=== PATIENT | male | born 1960 ===

== ENCOUNTER 2018-05-01 09:02 | Day surgery (SDC) | payer OTHER, BC ==
[2018-05-01] MEDS ORDERED: Phenylephrine 10 mg/ml Inj ONE (10:13)
[2018-05-01] MEDS ORDERED: Iodixanol 320 MG/ML 100 ML BOTTLE IV ONE (10:13)
[2018-05-01] MEDS ORDERED: Lidocaine 2% Inj (20ml) ONE (10:13)
[2018-05-01] MEDS ORDERED: Iohexol 350mgl/ml 50 ML ONE (10:13)
[2018-05-01] MEDS ORDERED: Nitroglycerin 50mg in D5W 50 MG/250 ML BOTTLE IV ONE (10:13)
[2018-05-01] MEDS ORDERED: Iodixanol 320 MG/ML 200 ML BOTTLE IV ONE (10:13)
[2018-05-01] MEDS ORDERED: Midazolam 2 MG/2 ML VIAL ONE ×2 (10:35→10:39)
[2018-05-01] MEDS ORDERED: Eptifibatide 20 mg/10mL Inj IVP ONE (10:59)
[2018-05-01] MEDS ORDERED: Eptifibatide 0.75 mg/ml 75 MG/100 ML BOTTLE IV ONE (10:59)
[2018-05-01] MEDS ORDERED: Sodium Chloride 0.9% 1,000 ML IV SCH (11:30)
--- NOTE | 2018-05-01 12:46 | CP.PCM.CON ---
<Mc Luciano - Last Filed: 05/01/18 12:50> History of Present Illness - History of Present Illness History of Present Illness: ICU Consult Note for Dr. Delarosa Reason for Consultation: S/p cardiac catherization Patient is a 57 yo M with PMH of CAD s/p stents, HTN, DM, and HLD was seen at [facility] for unstable angina and elevated troponin levels and admitted for NSTEMI. Patient was transferred to [facility] this AM for cardiac catherization. Drug-eluting stents were placed the LAD and circumflex artery. Patient is transferred to the ICU for monitoring post-cardiac catherization. Currently, patients states he has some mid-back pain, but denies CP, SOB, n/v/d, abdominal pain, fever, chills, MUJICA, or dizziness. PMH: CAD s/p stents, HTN, DM, and HLD Surg: Cardiac catherization All: NKDA SH: Admits to 1-2 [facility] for 25 years FHx: DM, HTN, CKD, unknown CA Review of Systems - Review of Systems All systems: reviewed and no additional remarkable complaints except (12 point ROS reviewed and is negative other than what is stated in HPI.) Past Patient History - Infectious Disease Hx of Infectious Diseases: None - Past Social History Smoking Status: Heavy Smoker > 10 Cigarettes Daily - CARDIAC Hx Hypercholesterolemia: Yes Hx Hypertension: Yes - PULMONARY Hx Respiratory Disorders: No - NEUROLOGICAL Hx Neurological Disorder: No - HEENT Hx HEENT Problems: No - RENAL Hx Chronic Kidney Disease: No - ENDOCRINE/METABOLIC Hx Endocrine Disorders: No - HEMATOLOGICAL/ONCOLOGICAL Hx Blood Disorders: No - INTEGUMENTARY Hx Dermatological Problems: No - MUSCULOSKELETAL/RHEUMATOLOGICAL Hx Musculoskeletal Disorders: No Hx Falls: No - GASTROINTESTINAL Hx Gastrointestinal Disorders: No - GENITOURINARY/GYNECOLOGICAL Hx Genitourinary Disorders: No - PSYCHIATRIC Hx Substance Use: No - SURGICAL HISTORY Hx Coronary Stent: Yes (x2) - ANESTHESIA Hx Anesthesia: Yes Hx Anesthesia Reactions: No Hx Malignant Hyperthermia: No Meds Allergies/Adverse Reactions: Allergies Allergy/AdvReac Type Severity Reaction Status Date / Time No Known Allergies Allergy Verified 04/28/18 13:26 - Medications Medications: Current Medications Aspirin (Ecotrin) 81 mg PO DAILY [facility] Atorvastatin Calcium (Lipitor) 40 mg PO DIN [facility] Clopidogrel Bisulfate (Plavix) 75 mg PO DAILY [facility] Sodium Chloride (Sodium Chloride 0.9%) 1,000 mls @ 100 mls/hr IV .Q10H [facility] Stop: 05/01/18 18:00 Metoprolol Tartrate (Lopressor) 25 mg PO BID [facility] Physical Exam - Constitutional Appears: No Acute Distress - Head Exam Head Exam: NORMAL INSPECTION - Eye Exam Eye Exam: Normal appearance Pupil Exam: NORMAL ACCOMODATION - ENT Exam ENT Exam: Mucous Membranes Moist, Normal Exam - Neck Exam Neck exam: Positive for: Normal Inspection - Respiratory Exam Respiratory Exam: Clear to Auscultation Bilateral. absent: Rales, Rhonchi, Wheezes - Cardiovascular Exam Cardiovascular Exam: RRR, +S1, +S2. absent: Diastolic murmur, Gallop, Rubs, Systolic Murmur - GI/Abdominal Exam GI & Abdominal Exam: Soft. absent: Distended, Guarding, Rebound, Tenderness - Extremities Exam Extremities exam: Positive for: normal inspection Additional comments: cath site dressings c/d/i, no signs of bleeding, discharge, erythema - Back Exam Back exam: NORMAL INSPECTION - Neurological Exam Neurological exam: Alert, CN II-XII Intact, Oriented x3 - Psychiatric Exam Psychiatric exam: Normal Affect, Normal Mood - Skin Skin Exam: Normal Color, Warm Assessment & Plan - Assessment and Plan (Free Text) Assessment: 57 yo M with PMH of CAD s/p stents, HTN, DM, and HLD admitted to ICU s/p cardiac catherization with placement of BORA in LAD and circumflex for NSTEMI. 1. NSTEMI s/p cardiac catherization 2. HTN 3. DM 4. HLD Plan: - Integrillin gtt for 18 hrs s/p catherization - DAPT - Metoprolol - Lipitor - IVF - EKG in AM - Recheck labs in AM - Monitor vitals and cath site for bleeding - Management as per Cardiology Patient discussed in detail with Dr. Beltran. Alfonso Luciano, DO PGY2 <Uche Beltran - Last Filed: 05/01/18 14:42> Meds - Medications Medications: Current Medications Aspirin (Ecotrin) 81 mg PO DAILY [facility] Atorvastatin Calcium (Lipitor) 40 mg PO DIN [facility] Clopidogrel Bisulfate (Plavix) 75 mg PO DAILY [facility] Sodium Chloride (Sodium Chloride 0.9%) 1,000 mls @ 100 mls/hr IV .Q10H [facility] Stop: 05/01/18 18:00 Eptifibatide (Integrilin) 75 mg in 100 mls @ 13.76 mls/hr IV .Q7H17M [facility]; Protocol Insulin Human Regular (Humulin R Low) 0 units SC ACHS [facility]; Protocol Metoprolol Tartrate (Lopressor) 25 mg PO BID [facility] Results - Vital Signs Recent Vital Signs: Last Vital Signs Temp 97.8 F 05/01/18 11:28 Pulse 72 05/01/18 13:20 Resp 20 05/01/18 13:15 BP 118/76 05/01/18 13:15 Pulse Ox 100 05/01/18 13:20 Assessment & Plan - Assessment and Plan (Free Text) Plan: Patient seen and examined on rounds with resident, agree with note with following additions/exceptions: Patient is 57 yo M with PMH of CAD s/p stents, HTN, DM, and HLD admitted to ICU s/p cardiac catherization, with placement of BORA in LAD and circumflex. Currently afebrile, HD stable, comfortable in NAD, doing well. Cont with ASA, plavix, integrillin for 18hrs BB Statin IVF EKG in AM ECHO Monitor Cr DVT ppx GI ppx Monitor in CCU
[2018-05-01] MEDS: Eptifibatide 0.75 mg/ml 75 MG/100 ML BOTTLE IV SCH (13:00)
--- NOTE | 2018-05-01 13:55 | CP.PCM.HP ---
History of Present Illness - History of Present Illness History of Present Illness: PGY-[address] Jha Mr Marion, 57M, with PMH active smoker, CAD s/p stents x 3, HTN/HLD, DM admitted at [facility] for NSTEMI with mildly elevated troponins 0.16, 0.122. He was started on subcu Lovenox therapy symptoms resolved. 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 He had a cardiac cath at [facility], BORA were placed at LAD and L circ. 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 All - NKDA Med - ASA, plavix, lipitor, metoprolol 25 bid Present on Admission - Present on Admission Any Indicators Present on Admission: No Past Patient History - Infectious Disease Hx of Infectious Diseases: None - Past Social History Smoking Status: Heavy Smoker > 10 Cigarettes Daily - CARDIAC Hx Hypercholesterolemia: Yes Hx Hypertension: Yes - PULMONARY Hx Respiratory Disorders: No - NEUROLOGICAL Hx Neurological Disorder: No - HEENT Hx HEENT Problems: No - RENAL Hx Chronic Kidney Disease: No - ENDOCRINE/METABOLIC Hx Endocrine Disorders: No - HEMATOLOGICAL/ONCOLOGICAL Hx Blood Disorders: No - INTEGUMENTARY Hx Dermatological Problems: No - MUSCULOSKELETAL/RHEUMATOLOGICAL Hx Musculoskeletal Disorders: No Hx Falls: No - GASTROINTESTINAL Hx Gastrointestinal Disorders: No - GENITOURINARY/GYNECOLOGICAL Hx Genitourinary Disorders: No - PSYCHIATRIC Hx Substance Use: No - SURGICAL HISTORY Hx Coronary Stent: Yes (x2) - ANESTHESIA Hx Anesthesia: Yes Hx Anesthesia Reactions: No Hx Malignant Hyperthermia: No Meds Allergies/Adverse Reactions: Allergies Allergy/AdvReac Type Severity Reaction Status Date / Time No Known Allergies Allergy Verified 04/28/18 13:26 Physical Exam - Constitutional Appears: No Acute Distress - Head Exam Head Exam: ATRAUMATIC, NORMAL INSPECTION, NORMOCEPHALIC - Eye Exam Eye Exam: EOMI, Normal appearance, PERRL. absent: Scleral icterus Pupil Exam: NORMAL ACCOMODATION - ENT Exam ENT Exam: Mucous Membranes Moist - Neck Exam Additional comments: supple - Respiratory Exam Respiratory Exam: Clear to Auscultation Bilateral, NORMAL BREATHING PATTERN. absent: Rales, Rhonchi, Wheezes - Cardiovascular Exam Cardiovascular Exam: REGULAR RHYTHM, +S1, +S2. absent: Systolic Murmur - GI/Abdominal Exam GI & Abdominal Exam: Normal Bowel Sounds, Soft. absent: Tenderness - Extremities Exam Extremities exam: Positive for: pedal pulses present. Negative for: calf tenderness, pedal edema Additional comments: cath access dressing intact, no hematoma - Neurological Exam Neurological exam: Alert, CN II-XII Intact, Oriented x3 - Psychiatric Exam Psychiatric exam: Normal Affect, Normal Mood - Skin Skin Exam: Dry, Warm Results - Vital Signs Recent Vital Signs: Last Vital Signs Temp 97.8 F 05/01/18 11:28 Pulse 72 05/01/18 13:20 Resp 20 05/01/18 13:15 BP 118/76 05/01/18 13:15 Pulse Ox 100 05/01/18 13:20 Assessment & Plan - Assessment and Plan (Free Text) Plan: Mr Marion, 57M, with PMH active smoker, CAD s/p stents x 3, HTN/HLD, DM had a NSTEMI got BORA were placed at LAD and L circ. 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
[2018-05-01 14:24] VITALS: BMI 27.8
--- NOTE | 2018-05-01 14:37 | CARD ---
APPROVED REPORT Date of service: 05/01/2018 EKG Measurement Heart [id number] <Conclusion> Sinus bradycardia Otherwise normal ECG
--- NOTE | 2018-05-01 14:52 | CARDCATH ---
PROCEDURE DATE: 05/01/2018 CARDIAC CATH AND PTCA HISTORY The patient is a 57-year-old male transferred from [facility] for urgent cardiac catheterization. The patient presented with a non-STEMI. He is noncompliant with his medications and he continues to smoke. He has had PTCA and stents in the past. PROCEDURE: Left heart catheterization with coronary arteriography and left ventriculogram followed by PTCA and stent of the circumflex artery and LAD. The right femoral artery was cannulated with a 6-Frisian sheath. There were no complications. I performed moderate sedation which included the presence of an independent trained observer that assisted in monitoring the patient's level of consciousness and physiologic status. After administration of Versed and fentanyl, my intra service time was 30 minutes. Findings on catheterization revealed a left ventricle that revealed an hypokinetic inferior wall. Estimated ejection fraction of 45-50%. His coronary anatomy revealed a codominant circulation. The RCA was occluded in its ostium which is chronic. The left main artery was unremarkable. The circumflex artery was a large vessel that revealed an eccentric 90% stenosis in the midportion of the circumflex artery. The LAD revealed stents in the diagonal and LAD. Distal to the diagonal in the distal portion of the stent in the LAD, there is a 80% stenoses noted. The patient started on intravenous Angiomax. PRU measurement was therapeutic. The guiding catheter was placed in the ostium of the left main artery and 0.014 ATW wire was used to cross the critical lesion in the circumflex artery. A 2.5 balloon was utilized to predilate the lesion. A 3.5 x 18 mm drug-eluting stent was placed and deployed in the mid circumflex artery at 14 ounces of pressure. Repeat coronary arteriography revealed good result in the stent area. However, there was slow flow down the circumflex artery consistent with embolization of a thrombus from the lesion. The patient was given 200 mcg of IC nitroglycerin and started on intravenous Integrilin. After several minutes, there was temple of MELBA III flow into the circumflex artery with no critical lesions and an excellent stent result. The wire was then brought back and placed into the LAD past the critical lesion at 2.75 x 8 mm drug-eluting stent was placed and deployed at 14 ounces of pressure. Repeat coronary arteriography revealed an excellent result with no residual stenosis and MELBA III flow. Angio-Seal was used to close the femoral artery site. The patient tolerated the procedure well. In summary, the procedure was successful PTCA and stent of a critically stenosed circumflex artery as well as a critically stenosed LAD at the distal portion of the previously placed stent. Drug-eluting stents were utilized. There was a chronically occluded RCA which was not manipulated. LV function revealed inferior wall hypokinesis with an EF of 45-50%. The patient's procedure was complicated by a period of slow flow down the circumflex artery consistent with embolization of thrombus down the circumflex artery which was resolved with intravenous Integrilin. Given these findings, the patient will go to the ICU and stay on Integrilin for the next 12 hours. His PRU is therapeutic with his Plavix. Given these findings, the patient will also need to stop smoking and undergo a strict cardiac risk reduction program. Geovani Beach MD
[2018-05-01] MEDS: Insulin Reg-LOW-Coverage SC SCH ×2 (16:30→22:59)
[2018-05-01 16:46] LABS: HDL CHOLESTEROL 19 mg/dL (29-60)
[2018-05-01 16:57] LABS: LDL CHOLESTEROL 101 mg/dL (0-129)
[2018-05-02] MEDS: Eptifibatide 0.75 mg/ml 75 MG/100 ML BOTTLE IV SCH (00:14)
--- NOTE | 2018-05-02 05:33 | CP.PCM.PN ---
Subjective - Date & Time of Evaluation Date of Evaluation: 05/02/18 Time of Evaluation: 05:25 - Subjective Subjective: Pt seen and examined this morning at bedside in the ICU. Pt denies chest pain, SOB, or bleeding from the cath site. Objective - Vital Signs/Intake and Output Vital Signs (last 24 hours): Temp Pulse Resp BP Pulse Ox 98.8 F 61 21 120/70 99 05/01/18 20:00 05/02/18 04:30 05/02/18 04:30 05/02/18 04:00 05/02/18 04:30 Intake and Output: 05/01/18 05/02/18 18:59 06:59 Intake Total 1150 Output Total 950 Balance 200 - Medications Medications: Current Medications Aspirin (Ecotrin) 81 mg PO DAILY [facility] Aspirin (Ecotrin) 81 mg PO DAILY [facility] Atorvastatin Calcium (Lipitor) 40 mg PO DIN [facility] Last Admin: 05/01/18 17:21 Dose: 40 mg Clopidogrel Bisulfate (Plavix) 75 mg PO DAILY [facility] Eptifibatide (Integrilin) 75 mg in 100 mls @ 13.76 mls/hr IV .Q7H17M [facility]; Protocol Last Admin: 05/02/18 00:14 Dose: 13.76 mls/hr Insulin Human Regular (Humulin R Low) 0 units SC ACHS [facility]; Protocol Last Admin: 05/01/18 22:59 Dose: Not Given Metoprolol Tartrate (Lopressor) 25 mg PO BID [facility] Last Admin: 05/01/18 17:21 Dose: 25 mg - Constitutional Appears: No Acute Distress - Head Exam Head Exam: ATRAUMATIC, NORMOCEPHALIC - Eye Exam Eye Exam: EOMI - ENT Exam ENT Exam: Mucous Membranes Moist - Neck Exam Neck Exam: Full ROM - Respiratory Exam Respiratory Exam: Clear to Ausculation Bilateral, NORMAL BREATHING PATTERN. absent: Accessory Muscle Use, Respiratory Distress - Cardiovascular Exam Cardiovascular Exam: RRR, +S1, +S2. absent: Diastolic murmur, Murmur - GI/Abdominal Exam GI & Abdominal Exam: Soft, Normal Bowel Sounds. absent: Tenderness - Extremities Exam Extremities Exam: Full ROM. absent: Calf Tenderness, Pedal Edema - Neurological Exam Neurological Exam: Alert, Awake, Oriented x3 - Psychiatric Exam Psychiatric exam: Normal Affect, Normal Mood - Skin Skin Exam: Dry, Normal Color, Warm Assessment and Plan - Assessment and Plan (Free Text) Assessment: (1) NSTEMI (non-ST elevated myocardial infarction) (2) Diabetes mellitus, new onset Status: Acute (3) HTN (hypertension) Status: Acute Plan: NSTEMI HA1C follow up Troponin 0.094, 0.16, 0.122 Pt underwent a cardiac cath at [facility], with BORA to Circ and LAD, during the procedure, thrombus embolization may have occurred resulting in slow flow down the circ, pt was transferred to the ICU. Medications ASA lipitor integrilin plavix metoprolol lovenox 90mg Q12 Pt seen, examined, assessment and plan discussed with Dr Ajit Mendoza PGY1
[2018-05-02 07:17] LABS: BASO # 0.02 K/mm3 (0.0-2.0); BASO % 0.2 % (0.0-3.0); EOS # 0.1 (0.0-0.7); EOS % 1.5 % (1.5-5.0); HEMOGLOBIN 17.1 g/dL (14.0-18.0); LYMPH # 2.1 (1.2-3.4); LYMPH % 24.6 % (22.0-35.0); MEAN CELL VOLUME 92.3 fl (80.0-105.0); MEAN CORPUSCULAR HEMOGLOBIN 31.4 pg (25.0-35.0); MEAN PLATELET VOLUME 10.3 fl (7.0-11.0); MONO # 0.9 (0.1-0.6); RBC 5.45 10^6/uL (3.5-6.1); RED CELL DISTRIBUTION WIDTH 13.1 % (11.5-14.5); WHITE BLOOD COUNT 8.6 10^3/uL (4.5-11.0)
[2018-05-02 07:27] LABS: BLOOD UREA NITROGEN 15 mg/dL (7-21); GFR NON-AFRICAN AMERICAN > 60
[2018-05-02 08:21] LABS: B-TYPE NATRIURETIC PEPTIDE 50.7 pg/mL (0-450); TROPONIN I 0.44 ng/mL
[2018-05-02] MEDS: Insulin Reg-LOW-Coverage SC SCH ×3 (08:23→17:04)
[2018-05-02 08:39] VITALS: TEMP 97.9
[2018-05-02 09:02] LABS: FREE T4 1.04 ng/dL (0.78-2.19)
[2018-05-02 09:02] LABS: ALB/GLOB RATIO 1.1 (1.1-1.8); ALBUMIN 3.9 g/dL (3.0-4.8); BILIRUBIN,DIRECT 0.2 mg/dL (0.0-0.4)
--- NOTE | 2018-05-02 09:06 | CP.CCUPN ---
<Parth Warner - Last Filed: 05/02/18 10:51> CCU Subjective - Physician Review Subjective (Free Text): 05/02/18 08:57 Parth Warner, PGY-1 ICU Progress Note for Dr. Beltran: Pt was seen and examined this AM with ICU team. Pt had no acute overnight events. Pt states that he is not having any chest pain anymore since the cath was done yesterday. He also denies palpitations, SOB, numbness, tingling, weakness, n/v, and only admits to R groin soreness. Pt denies any other acute complaints at this time. CCU Objective - Vital Signs / Intake & Output Vital Signs (Last 4 hours): Vital Signs Temp Pulse Resp BP Pulse Ox 05/02/18 08:35 56 L 20 05/02/18 08:34 57 L 22 05/02/18 08:33 57 L 21 05/02/18 08:32 59 L 20 05/02/18 08:31 62 35 H 05/02/18 08:30 60 21 05/02/18 08:29 66 21 05/02/18 08:28 67 15 05/02/18 08:27 59 L 20 05/02/18 08:26 59 L 14 05/02/18 08:25 63 20 05/02/18 08:24 60 20 05/02/18 08:23 64 21 05/02/18 08:22 67 22 05/02/18 08:21 60 05/02/18 08:20 64 45 H 05/02/18 08:19 66 13 05/02/18 08:18 70 25 H 05/02/18 08:17 67 19 05/02/18 08:16 64 21 05/02/18 08:15 63 19 05/02/18 08:14 61 43 H 05/02/18 08:13 58 L 41 H 05/02/18 08:12 52 L 05/02/18 08:11 57 L 25 H 05/02/18 08:10 55 L 24 05/02/18 08:09 56 L 05/02/18 08:08 54 L 14 05/02/18 08:07 56 L 46 H 05/02/18 08:06 53 L 20 05/02/18 08:05 55 L 23 05/02/18 08:04 57 L 53 H 05/02/18 08:03 55 L 17 05/02/18 08:02 57 L 26 H 05/02/18 08:01 60 30 H 05/02/18 08:00 57 L 31 H 05/02/18 07:59 59 L 21 05/02/18 07:58 57 L 12 05/02/18 07:57 57 L 30 H 05/02/18 07:56 58 L 17 05/02/18 07:55 59 L 45 H 05/02/18 07:54 63 125 H 05/02/18 07:53 58 L 20 05/02/18 07:52 59 L 29 H 05/02/18 07:51 59 L 05/02/18 07:48 58 L 21 05/02/18 07:30 59 L 21 100 05/02/18 07:00 63 14 100 05/02/18 06:30 65 74 H 97 05/02/18 06:00 97.9 F 68 94 L 05/02/18 05:30 61 95 05/02/18 05:00 59 L 20 122/61 100 Intake and Output (Last 8hrs): Intake & Output 05/01/18 05/02/18 05/02/18 22:59 06:59 14:59 Intake Total 1150 400 Output Total 950 900 Balance 200 -500 Intake: IV 910 0 Left Antecubital 910 0 Oral 240 400 Output: Urine 950 900 Urine, Voided 950 900 Other: # Bowel Movements 0 0 - Physical Exam Head: Positive for: Atraumatic, Normocephalic Pupils: Positive for: PERRL Extroacular Muscles: Positive for: EOMI Conjunctiva: Positive for: Normal Neck: Positive for: Normal Range of Motion Respiratory/Chest: Positive for: Clear to Auscultation, Good Air Exchange. Negative for: Respiratory Distress, Accessory Muscle Use, Wheezes, Rales, Rhonchi, Tachypneic Cardiovascular: Positive for: Regular Rate and Rhythm, Normal S1, S2. Negative for: Murmurs, Rub, Gallop Abdomen: Positive for: Normal Bowel Sounds. Negative for: Tenderness, Distention, Guarding Upper Extremity: Positive for: Normal Inspection, Normal ROM, NORMAL PULSES. Negative for: Cyanosis, Edema Lower Extremity: Positive for: NORMAL PULSES, Other (Dressing over R groin noted where access was gained for cath. Dressing clean, dry, intact). Negative for: Edema, CALF TENDERNESS Neurological: Positive for: GCS=15, CN II-XII Intact, Speech Normal Skin: Positive for: Warm, Dry, Normal Color Psychiatric: Positive for: Alert, Oriented x 3, Normal Insight, Normal Concentration - Medications Active Medications: Active Medications Generic Name Dose Route Start Last Admin Trade Name Freq PRN Reason Stop Dose Admin Acetaminophen 650 mg 05/02/18 08:45 Tylenol 325mg Tab PO Q6 PRN TEMP>=99.5F Acetaminophen 650 mg 05/02/18 08:45 Tylenol 650 Mg Supp RC Q6H PRN TEMP>=99.5F Aspirin 81 mg 05/02/18 10:00 Ecotrin PO DAILY TEX Aspirin 81 mg 05/02/18 10:00 Ecotrin PO DAILY TEX Atorvastatin Calcium 40 mg 05/01/18 17:00 05/01/18 17:21 Lipitor PO 40 mg DIN TEX Administration Clopidogrel Bisulfate 75 mg 05/02/18 10:00 Plavix PO DAILY [facility] Eptifibatide 75 mg in 100 mls @ 13.76 mls/hr 05/01/18 13:00 05/02/18 00:14 Integrilin IV 13.76 mls/hr .Q7H17M TEX Administration Protocol 2 MCG/KG/MIN Insulin Human Regular 0 units 05/01/18 16:30 05/02/18 08:23 Humulin R Low SC Not Given ACHS [facility] Protocol Levalbuterol HCl 0.63 mg 05/02/18 14:00 Xopenex IH [id number] [facility] Metoprolol Tartrate 25 mg 05/01/18 18:00 05/01/18 17:21 Lopressor PO 25 mg BID [facility] Administration Nicotine 1 patch 05/02/18 10:00 Nicoderm Cq TD DAILY [facility] Ondansetron HCl 4 mg 05/02/18 08:45 Zofran Inj IVP Q4H PRN Nausea/Vomiting Pantoprazole Sodium 40 mg 05/03/18 06:00 Protonix Ec Tab PO 0600 [facility] - Patient Studies Lab Studies: Lab Studies 05/02/18 05/02/18 05/02/18 Range/Units 07:57 06:50 06:50 WBC 8.6 (4.5-11.0) 10^3/uL RBC 5.45 (3.5-6.1) 10^6/uL Hgb 17.1 (14.0-18.0) g/dL Hct 50.3 (42.0-52.0) % MCV 92.3 (80.0-105.0) fl MCH 31.4 (25.0-35.0) pg MCHC 34.0 (31.0-37.0) g/dl RDW 13.1 (11.5-14.5) % Plt Count 157 (120.0-450.0) 10^3/uL MPV 10.3 (7.0-11.0) fl Neut % (Auto) 63.7 (50.0-68.0) % Lymph % (Auto) 24.6 (22.0-35.0) % Newberry % (Auto) 10.0 H (1.0-6.0) % Eos % (Auto) 1.5 (1.5-5.0) % Baso % (Auto) 0.2 (0.0-3.0) % Lymph # (Auto) 2.1 (1.2-3.4) Newberry # (Auto) 0.9 H (0.1-0.6) Eos # (Auto) 0.1 (0.0-0.7) Baso # (Auto) 0.02 (0.0-2.0) K/mm3 Absolute Neuts (auto) 5.47 (1.4-6.5) Sodium 136 (132-148) mmol/L Potassium 4.4 (3.6-5.0) mmol/L Chloride 101 (98-107) mmol/L Carbon Dioxide 25 (21-33) mmol/L Anion Gap 13 (10-20) BUN 15 (7-21) mg/dL Creatinine 0.8 (0.8-1.5) mg/dl Est GFR ( Amer) > 60 Est GFR (Non-Af Amer) > 60 POC Glucose (mg/dL) 140 H (65-110) mg/dL Random Glucose 170 H (70-110) mg/dL Hemoglobin A1c (4.2-6.5) % Calcium 9.0 (8.4-10.5) mg/dL Troponin I 0.44 H* ng/mL NT-Pro-B Natriuret Pep 50.7 (0-450) pg/mL Triglycerides (35-160) mg/dL Cholesterol (130-200) mg/dL LDL Cholesterol Direct (0-129) mg/dL HDL Cholesterol (29-60) mg/dL Free T4 (0.78-2.19) ng/dL 05/01/18 05/01/18 05/01/18 Range/Units 21:32 16:52 16:00 WBC (4.5-11.0) 10^3/uL RBC (3.5-6.1) 10^6/uL Hgb (14.0-18.0) g/dL Hct (42.0-52.0) % MCV (80.0-105.0) fl MCH (25.0-35.0) pg MCHC (31.0-37.0) g/dl RDW (11.5-14.5) % Plt Count (120.0-450.0) 10^3/uL MPV (7.0-11.0) fl Neut % (Auto) (50.0-68.0) % Lymph % (Auto) (22.0-35.0) % Newberry % (Auto) (1.0-6.0) % Eos % (Auto) (1.5-5.0) % Baso % (Auto) (0.0-3.0) % Lymph # (Auto) (1.2-3.4) Newberry # (Auto) (0.1-0.6) Eos # (Auto) (0.0-0.7) Baso # (Auto) (0.0-2.0) K/mm3 Absolute Neuts (auto) (1.4-6.5) Sodium (132-148) mmol/L Potassium (3.6-5.0) mmol/L Chloride (98-107) mmol/L Carbon Dioxide (21-33) mmol/L Anion Gap (10-20) BUN (7-21) mg/dL Creatinine (0.8-1.5) mg/dl Est GFR ( Amer) Est GFR (Non-Af Amer) POC Glucose (mg/dL) 123 H 186 H (65-110) mg/dL Random Glucose (70-110) mg/dL Hemoglobin A1c (4.2-6.5) % Calcium (8.4-10.5) mg/dL Troponin I ng/mL NT-Pro-B Natriuret Pep (0-450) pg/mL Triglycerides (35-160) mg/dL Cholesterol (130-200) mg/dL LDL Cholesterol Direct (0-129) mg/dL HDL Cholesterol (29-60) mg/dL Free T4 0.97 (0.78-2.19) ng/dL 05/01/18 05/01/18 Range/Units 16:00 16:00 WBC (4.5-11.0) 10^3/uL RBC (3.5-6.1) 10^6/uL Hgb (14.0-18.0) g/dL Hct (42.0-52.0) % MCV (80.0-105.0) fl MCH (25.0-35.0) pg MCHC (31.0-37.0) g/dl RDW (11.5-14.5) % Plt Count (120.0-450.0) 10^3/uL MPV (7.0-11.0) fl Neut % (Auto) (50.0-68.0) % Lymph % (Auto) (22.0-35.0) % Newberry % (Auto) (1.0-6.0) % Eos % (Auto) (1.5-5.0) % Baso % (Auto) (0.0-3.0) % Lymph # (Auto) (1.2-3.4) Newberry # (Auto) (0.1-0.6) Eos # (Auto) (0.0-0.7) Baso # (Auto) (0.0-2.0) K/mm3 Absolute Neuts (auto) (1.4-6.5) Sodium (132-148) mmol/L Potassium (3.6-5.0) mmol/L Chloride (98-107) mmol/L Carbon Dioxide (21-33) mmol/L Anion Gap (10-20) BUN (7-21) mg/dL Creatinine (0.8-1.5) mg/dl Est GFR ( Amer) Est GFR (Non-Af Amer) POC Glucose (mg/dL) (65-110) mg/dL Random Glucose (70-110) mg/dL Hemoglobin A1c 8.3 H (4.2-6.5) % Calcium (8.4-10.5) mg/dL Troponin I ng/mL NT-Pro-B Natriuret Pep (0-450) pg/mL Triglycerides 153 (35-160) mg/dL Cholesterol 142 (130-200) mg/dL LDL Cholesterol Direct 101 (0-129) mg/dL HDL Cholesterol 19 L (29-60) mg/dL Free T4 (0.78-2.19) ng/dL Laboratory Results - last 24 hr 05/01/18 05/01/18 05/01/18 16:00 16:00 16:00 WBC RBC Hgb Hct MCV MCH MCHC RDW Plt Count MPV Neut % (Auto) Lymph % (Auto) Newberry % (Auto) Eos % (Auto) Baso % (Auto) Lymph # (Auto) [place]berry # (Auto) Eos # (Auto) Baso # (Auto) Absolute Neuts (auto) Sodium Potassium Chloride Carbon Dioxide Anion Gap BUN Creatinine Est GFR ( Amer) Est GFR (Non-Af Amer) POC Glucose (mg/dL) Random Glucose Hemoglobin A1c 8.3 H Calcium Troponin I NT-Pro-B Natriuret Pep Triglycerides 153 Cholesterol 142 LDL Cholesterol Direct 101 HDL Cholesterol 19 L Free T4 0.97 05/01/18 05/01/18 05/02/18 16:52 21:32 06:50 WBC RBC Hgb Hct MCV MCH MCHC RDW Plt Count MPV Neut % (Auto) Lymph % (Auto) Newberry % (Auto) Eos % (Auto) Baso % (Auto) Lymph # (Auto) [place]berry # (Auto) Eos # (Auto) Baso # (Auto) Absolute Neuts (auto) Sodium 136 Potassium 4.4 Chloride 101 Carbon Dioxide 25 Anion Gap 13 BUN 15 Creatinine 0.8 Est GFR ( Amer) > 60 Est GFR (Non-Af Amer) > 60 POC Glucose (mg/dL) 186 H 123 H Random Glucose 170 H Hemoglobin A1c Calcium 9.0 Troponin I 0.44 H* NT-Pro-B Natriuret Pep 50.7 Triglycerides Cholesterol LDL Cholesterol Direct HDL Cholesterol Free T4 05/02/18 05/02/18 06:50 07:57 WBC 8.6 RBC 5.45 Hgb 17.1 Hct 50.3 MCV 92.3 MCH 31.4 MCHC 34.0 RDW 13.1 Plt Count 157 MPV 10.3 Neut % (Auto) 63.7 Lymph % (Auto) 24.6 Newberry % (Auto) 10.0 H Eos % (Auto) 1.5 Baso % (Auto) 0.2 Lymph # (Auto) 2.1 [place]berry # (Auto) 0.9 H Eos # (Auto) 0.1 Baso # (Auto) 0.02 Absolute Neuts (auto) 5.47 Sodium Potassium Chloride Carbon Dioxide Anion Gap BUN Creatinine Est GFR ( Amer) Est GFR (Non-Af Amer) POC Glucose (mg/dL) 140 H Random Glucose Hemoglobin A1c Calcium Troponin I NT-Pro-B Natriuret Pep Triglycerides Cholesterol LDL Cholesterol Direct HDL Cholesterol Free T4 EKG/Cardiology Studies: Cardiology / EKG Studies 05/01/18 11:28 ELECTROCARDIOGRAM Urgent Comment: 12 lead EKG upon arrival in unit Reason For Exam: post ptca 05/02/18 07:00 EKG [ELECTROCARDIOGRAM] DAILY Comment: Reason For Exam: NSTEMI 05/03/18 07:00 EKG [ELECTROCARDIOGRAM] DAILY Comment: Reason For Exam: NSTEMI 05/04/18 07:00 EKG [ELECTROCARDIOGRAM] DAILY Comment: Reason For Exam: NSTEMI Fingerstick Blood Sugar Results: 140 Critical Care Progress Note - Nutrition Nutrition: Nutrition Category Date Time Status Consistent Carbohydrate [DIET] Diets 05/01/18 Breakfast Ordered Assessment/Plan - Assessment and Plan (Free Text) Assessment: 57 yo M with PMH of CAD s/p stents, HTN, DM, and HLD admitted to ICU s/p cardiac catherization with placement of BORA in LAD and circumflex for NSTEMI. Pt had no acute overnight events. Plan: Neuro: - AOx3 Cardio: - NSTEMI s/p 2 BORA 05/01/18: - Pt had 2 BORA placed on 05/01/18, 1 in LAD and 1 in L circ - EKG this AM showed NSR @ 60bmp - Cont ASA, plavix, B-bony, statin - Pt is asymptomatic at this time - Hx of HTN, HLD: - Cont statin and lopressor Pulm: - Cont Xopenex - Maintain O2 > 92 GI: - HHD Nephro: - Keep pt euvolemic Endo: - ISS Dispo: Pt is now asymptomatic and EKG this AM showed NSR @ 60. Case seen and discussed with Dr. Ruby Warner, PGY-1 <Uche Beltran - Last Filed: 05/02/18 12:24> CCU Objective - Vital Signs / Intake & Output Vital Signs (Last 4 hours): Vital Signs Pulse Resp BP Pulse Ox 05/02/18 10:17 64 23 05/02/18 10:16 66 29 H 05/02/18 10:15 65 13 05/02/18 10:14 64 13 05/02/18 10:13 63 28 H 05/02/18 10:12 67 15 05/02/18 10:11 67 22 05/02/18 10:10 67 23 05/02/18 10:09 65 28 H 05/02/18 10:08 73 26 H 05/02/18 10:07 66 28 H 05/02/18 10:06 70 29 H 05/02/18 10:05 67 27 H 05/02/18 10:04 66 18 05/02/18 10:03 67 14 05/02/18 10:02 62 18 05/02/18 10:01 65 18 05/02/18 10:00 127/75 05/02/18 09:59 69 27 H 05/02/18 09:58 69 18 05/02/18 09:57 63 23 05/02/18 09:56 61 20 05/02/18 09:55 63 13 05/02/18 09:54 65 15 05/02/18 09:53 63 9 L 05/02/18 09:52 63 14 05/02/18 09:51 66 21 05/02/18 09:50 65 21 05/02/18 09:49 65 05/02/18 09:48 66 15 05/02/18 09:47 64 24 05/02/18 09:46 67 34 H 05/02/18 09:45 64 22 05/02/18 09:44 67 11 L 05/02/18 09:43 64 26 H 05/02/18 09:42 66 18 05/02/18 09:41 67 14 05/02/18 09:29 78 05/02/18 09:28 71 19 05/02/18 09:27 65 32 H 05/02/18 09:26 64 30 H 05/02/18 09:25 60 05/02/18 09:24 63 20 05/02/18 09:23 60 19 05/02/18 09:22 59 L 33 H 111/62 84 L 05/02/18 09:21 60 45 H 05/02/18 09:20 59 L 18 05/02/18 09:19 58 L 17 05/02/18 09:18 61 40 H 05/02/18 08:35 56 L 20 05/02/18 08:34 57 L 22 05/02/18 08:33 57 L 21 05/02/18 08:32 59 L 20 05/02/18 08:31 62 35 H 05/02/18 08:30 60 21 05/02/18 08:29 66 21 05/02/18 08:28 67 15 05/02/18 08:27 59 L 20 05/02/18 08:26 59 L 14 05/02/18 08:25 63 20 05/02/18 08:24 60 20 05/02/18 08:23 64 21 Intake and Output (Last 8hrs): Intake & Output 05/01/18 05/02/18 05/02/18 22:59 06:59 14:59 Intake Total 1150 400 Output Total 950 900 Balance 200 -500 Intake: IV 910 0 Left Antecubital 910 0 Oral 240 400 Output: Urine 950 900 Urine, Voided 950 900 Other: # Bowel Movements 0 0 - Medications Active Medications: Active Medications Generic Name Dose Route Start Last Admin Trade Name Freq PRN Reason Stop Dose Admin Acetaminophen 650 mg 05/02/18 08:45 Tylenol 325mg Tab PO Q6 PRN TEMP>=99.5F Acetaminophen 650 mg 05/02/18 08:45 Tylenol 650 Mg Supp RC Q6H PRN TEMP>=99.5F Aspirin 81 mg 05/02/18 10:00 05/02/18 09:22 Ecotrin PO 81 mg DAILY TEX Administration Aspirin 81 mg 05/02/18 10:00 Ecotrin PO DAILY [facility] Atorvastatin Calcium 40 mg 05/01/18 17:00 05/01/18 17:21 Lipitor PO 40 mg DIN [facility] Administration Clopidogrel Bisulfate 75 mg 05/02/18 10:00 05/02/18 09:22 Plavix PO 75 mg DAILY [facility] Administration Eptifibatide 75 mg in 100 mls @ 13.76 mls/hr 05/01/18 13:00 05/02/18 00:14 Integrilin IV 13.76 mls/hr .Q7H17M [facility] Administration Protocol 2 MCG/KG/MIN Insulin Human Regular 0 units 05/01/18 16:30 05/02/18 08:23 Humulin R Low SC Not Given ACHS [facility] Protocol Levalbuterol HCl 0.63 mg 05/02/18 14:00 Xopenex IH [id number] [facility] Metoprolol Tartrate 25 mg 05/01/18 18:00 05/02/18 09:22 Lopressor PO 25 mg BID [facility] Administration Nicotine 1 patch 05/02/18 10:00 05/02/18 09:24 Nicoderm Cq TD 1 patch DAILY [facility] Administration Ondansetron HCl 4 mg 05/02/18 08:45 Zofran Inj IVP Q4H PRN Nausea/Vomiting Pantoprazole Sodium 40 mg 05/03/18 06:00 Protonix Ec Tab PO 0600 [facility] - Patient Studies Lab Studies: Lab Studies 05/02/18 05/02/18 05/02/18 Range/Units 08:25 07:57 06:50 WBC (4.5-11.0) 10^3/uL RBC (3.5-6.1) 10^6/uL Hgb (14.0-18.0) g/dL Hct (42.0-52.0) % MCV (80.0-105.0) fl MCH (25.0-35.0) pg MCHC (31.0-37.0) g/dl RDW (11.5-14.5) % Plt Count (120.0-450.0) 10^3/uL MPV (7.0-11.0) fl Neut % (Auto) (50.0-68.0) % Lymph % (Auto) (22.0-35.0) % Newberry % (Auto) (1.0-6.0) % Eos % (Auto) (1.5-5.0) % Baso % (Auto) (0.0-3.0) % Lymph # (Auto) (1.2-3.4) [place]berry # (Auto) (0.1-0.6) Eos # (Auto) (0.0-0.7) Baso # (Auto) (0.0-2.0) K/mm3 Absolute Neuts (auto) (1.4-6.5) Sodium (132-148) mmol/L Potassium (3.6-5.0) mmol/L Chloride (98-107) mmol/L Carbon Dioxide (21-33) mmol/L Anion Gap (10-20) BUN (7-21) mg/dL Creatinine (0.8-1.5) mg/dl Est GFR ( Amer) Est GFR (Non-Af Amer) POC Glucose (mg/dL) 140 H (65-110) mg/dL Random Glucose (70-110) mg/dL Hemoglobin A1c (4.2-6.5) % Calcium (8.4-10.5) mg/dL Magnesium 1.7 (1.7-2.2) mg/dL Total Bilirubin 0.6 (0.2-1.3) mg/dL Direct Bilirubin 0.2 (0.0-0.4) mg/dL AST 103 H D (17-59) U/L ALT 142 H (7-56) U/L Alkaline Phosphatase 74 (38-126) U/L Troponin I ng/mL NT-Pro-B Natriuret Pep (0-450) pg/mL Total Protein 7.5 (5.8-8.3) g/dL Albumin 3.9 (3.0-4.8) g/dL Globulin 3.6 gm/dL Albumin/Globulin Ratio 1.1 (1.1-1.8) Triglycerides (35-160) mg/dL Cholesterol (130-200) mg/dL LDL Cholesterol Direct (0-129) mg/dL HDL Cholesterol (29-60) mg/dL Free T4 1.04 (0.78-2.19) ng/dL TSH 3rd Generation 2.20 (0.46-4.68) mIU/mL 05/02/18 05/02/18 05/01/18 Range/Units 06:50 06:50 21:32 WBC 8.6 (4.5-11.0) 10^3/uL RBC 5.45 (3.5-6.1) 10^6/uL Hgb 17.1 (14.0-18.0) g/dL Hct 50.3 (42.0-52.0) % MCV 92.3 (80.0-105.0) fl MCH 31.4 (25.0-35.0) pg MCHC 34.0 (31.0-37.0) g/dl RDW 13.1 (11.5-14.5) % Plt Count 157 (120.0-450.0) 10^3/uL MPV 10.3 (7.0-11.0) fl Neut % (Auto) 63.7 (50.0-68.0) % Lymph % (Auto) 24.6 (22.0-35.0) % Newberry % (Auto) 10.0 H (1.0-6.0) % Eos % (Auto) 1.5 (1.5-5.0) % Baso % (Auto) 0.2 (0.0-3.0) % Lymph # (Auto) 2.1 (1.2-3.4) [place]berry # (Auto) 0.9 H (0.1-0.6) Eos # (Auto) 0.1 (0.0-0.7) Baso # (Auto) 0.02 (0.0-2.0) K/mm3 Absolute Neuts (auto) 5.47 (1.4-6.5) Sodium 136 (132-148) mmol/L Potassium 4.4 (3.6-5.0) mmol/L Chloride 101 (98-107) mmol/L Carbon Dioxide 25 (21-33) mmol/L Anion Gap 13 (10-20) BUN 15 (7-21) mg/dL Creatinine 0.8 (0.8-1.5) mg/dl Est GFR ( Amer) > 60 Est GFR (Non-Af Amer) > 60 POC Glucose (mg/dL) 123 H (65-110) mg/dL Random Glucose 170 H (70-110) mg/dL Hemoglobin A1c (4.2-6.5) % Calcium 9.0 (8.4-10.5) mg/dL Magnesium (1.7-2.2) mg/dL Total Bilirubin (0.2-1.3) mg/dL Direct Bilirubin (0.0-0.4) mg/dL AST (17-59) U/L ALT (7-56) U/L Alkaline Phosphatase (38-126) U/L Troponin I 0.44 H* ng/mL NT-Pro-B Natriuret Pep 50.7 (0-450) pg/mL Total Protein (5.8-8.3) g/dL Albumin (3.0-4.8) g/dL Globulin gm/dL Albumin/Globulin Ratio (1.1-1.8) Triglycerides (35-160) mg/dL Cholesterol (130-200) mg/dL LDL Cholesterol Direct (0-129) mg/dL HDL Cholesterol (29-60) mg/dL Free T4 (0.78-2.19) ng/dL TSH 3rd Generation (0.46-4.68) mIU/mL 05/01/18 05/01/18 05/01/18 Range/Units 16:52 16:00 16:00 WBC (4.5-11.0) 10^3/uL RBC (3.5-6.1) 10^6/uL Hgb (14.0-18.0) g/dL Hct (42.0-52.0) % MCV (80.0-105.0) fl MCH (25.0-35.0) pg MCHC (31.0-37.0) g/dl RDW (11.5-14.5) % Plt Count (120.0-450.0) 10^3/uL MPV (7.0-11.0) fl Neut % (Auto) (50.0-68.0) % Lymph % (Auto) (22.0-35.0) % Newberry % (Auto) (1.0-6.0) % Eos % (Auto) (1.5-5.0) % Baso % (Auto) (0.0-3.0) % Lymph # (Auto) (1.2-3.4) [place] # (Auto) (0.1-0.6) Eos # (Auto) (0.0-0.7) Baso # (Auto) (0.0-2.0) K/mm3 Absolute Neuts (auto) (1.4-6.5) Sodium (132-148) mmol/L Potassium (3.6-5.0) mmol/L Chloride (98-107) mmol/L Carbon Dioxide (21-33) mmol/L Anion Gap (10-20) BUN (7-21) mg/dL Creatinine (0.8-1.5) mg/dl Est GFR ( Amer) Est GFR (Non-Af Amer) POC Glucose (mg/dL) 186 H (65-110) mg/dL Random Glucose (70-110) mg/dL Hemoglobin A1c 8.3 H (4.2-6.5) % Calcium (8.4-10.5) mg/dL Magnesium (1.7-2.2) mg/dL Total Bilirubin (0.2-1.3) mg/dL Direct Bilirubin (0.0-0.4) mg/dL AST (17-59) U/L ALT (7-56) U/L Alkaline Phosphatase (38-126) U/L Troponin I ng/mL NT-Pro-B Natriuret Pep (0-450) pg/mL Total Protein (5.8-8.3) g/dL Albumin (3.0-4.8) g/dL Globulin gm/dL Albumin/Globulin Ratio (1.1-1.8) Triglycerides (35-160) mg/dL Cholesterol (130-200) mg/dL LDL Cholesterol Direct (0-129) mg/dL HDL Cholesterol (29-60) mg/dL Free T4 0.97 (0.78-2.19) ng/dL TSH 3rd Generation (0.46-4.68) mIU/mL 05/01/18 Range/Units 16:00 WBC (4.5-11.0) 10^3/uL RBC (3.5-6.1) 10^6/uL Hgb (14.0-18.0) g/dL Hct (42.0-52.0) % MCV (80.0-105.0) fl MCH (25.0-35.0) pg MCHC (31.0-37.0) g/dl RDW (11.5-14.5) % Plt Count (120.0-450.0) 10^3/uL MPV (7.0-11.0) fl Neut % (Auto) (50.0-68.0) % Lymph % (Auto) (22.0-35.0) % Newberry % (Auto) (1.0-6.0) % Eos % (Auto) (1.5-5.0) % Baso % (Auto) (0.0-3.0) % Lymph # (Auto) (1.2-3.4) Newberry # (Auto) (0.1-0.6) Eos # (Auto) (0.0-0.7) Baso # (Auto) (0.0-2.0) K/mm3 Absolute Neuts (auto) (1.4-6.5) Sodium (132-148) mmol/L Potassium (3.6-5.0) mmol/L Chloride (98-107) mmol/L Carbon Dioxide (21-33) mmol/L Anion Gap (10-20) BUN (7-21) mg/dL Creatinine (0.8-1.5) mg/dl Est GFR ( Amer) Est GFR (Non-Af Amer) POC Glucose (mg/dL) (65-110) mg/dL Random Glucose (70-110) mg/dL Hemoglobin A1c (4.2-6.5) % Calcium (8.4-10.5) mg/dL Magnesium (1.7-2.2) mg/dL Total Bilirubin (0.2-1.3) mg/dL Direct Bilirubin (0.0-0.4) mg/dL AST (17-59) U/L ALT (7-56) U/L Alkaline Phosphatase (38-126) U/L Troponin I ng/mL NT-Pro-B Natriuret Pep (0-450) pg/mL Total Protein (5.8-8.3) g/dL Albumin (3.0-4.8) g/dL Globulin gm/dL Albumin/Globulin Ratio (1.1-1.8) Triglycerides 153 (35-160) mg/dL Cholesterol 142 (130-200) mg/dL LDL Cholesterol Direct 101 (0-129) mg/dL HDL Cholesterol 19 L (29-60) mg/dL Free T4 (0.78-2.19) ng/dL TSH 3rd Generation (0.46-4.68) mIU/mL Laboratory Results - last 24 hr 05/01/18 05/01/18 05/01/18 16:00 16:00 16:00 WBC RBC Hgb Hct MCV MCH MCHC RDW Plt Count MPV Neut % (Auto) Lymph % (Auto) Newberry % (Auto) Eos % (Auto) Baso % (Auto) Lymph # (Auto) Newberry # (Auto) Eos # (Auto) Baso # (Auto) Absolute Neuts (auto) Sodium Potassium Chloride Carbon Dioxide Anion Gap BUN Creatinine Est GFR ( Amer) Est GFR (Non-Af Amer) POC Glucose (mg/dL) Random Glucose Hemoglobin A1c 8.3 H Calcium Magnesium Total Bilirubin Direct Bilirubin AST ALT Alkaline Phosphatase Troponin I NT-Pro-B Natriuret Pep Total Protein Albumin Globulin Albumin/Globulin Ratio Triglycerides 153 Cholesterol 142 LDL Cholesterol Direct 101 HDL Cholesterol 19 L Free T4 0.97 TSH 3rd Generation 05/01/18 05/01/18 05/02/18 16:52 21:32 06:50 WBC RBC Hgb Hct MCV MCH MCHC RDW Plt Count MPV Neut % (Auto) Lymph % (Auto) Newberry % (Auto) Eos % (Auto) Baso % (Auto) Lymph # (Auto) [place]berry # (Auto) Eos # (Auto) Baso # (Auto) Absolute Neuts (auto) Sodium 136 Potassium 4.4 Chloride 101 Carbon Dioxide 25 Anion Gap 13 BUN 15 Creatinine 0.8 Est GFR ( Amer) > 60 Est GFR (Non-Af Amer) > 60 POC Glucose (mg/dL) 186 H 123 H Random Glucose 170 H Hemoglobin A1c Calcium 9.0 Magnesium Total Bilirubin Direct Bilirubin AST ALT Alkaline Phosphatase Troponin I 0.44 H* NT-Pro-B Natriuret Pep 50.7 Total Protein Albumin Globulin Albumin/Globulin Ratio Triglycerides Cholesterol LDL Cholesterol Direct HDL Cholesterol Free T4 TSH 3rd Generation 05/02/18 05/02/18 05/02/18 06:50 06:50 07:57 WBC 8.6 RBC 5.45 Hgb 17.1 Hct 50.3 MCV 92.3 MCH 31.4 MCHC 34.0 RDW 13.1 Plt Count 157 MPV 10.3 Neut % (Auto) 63.7 Lymph % (Auto) 24.6 Newberry % (Auto) 10.0 H Eos % (Auto) 1.5 Baso % (Auto) 0.2 Lymph # (Auto) 2.1 Newberry # (Auto) 0.9 H Eos # (Auto) 0.1 Baso # (Auto) 0.02 Absolute Neuts (auto) 5.47 Sodium Potassium Chloride Carbon Dioxide Anion Gap BUN Creatinine Est GFR ( Amer) Est GFR (Non-Af Amer) POC Glucose (mg/dL) 140 H Random Glucose Hemoglobin A1c Calcium Magnesium 1.7 Total Bilirubin 0.6 Direct Bilirubin 0.2 AST 103 H D ALT 142 H Alkaline Phosphatase 74 Troponin I NT-Pro-B Natriuret Pep Total Protein 7.5 Albumin 3.9 Globulin 3.6 Albumin/Globulin Ratio 1.1 Triglycerides Cholesterol LDL Cholesterol Direct HDL Cholesterol Free T4 TSH 3rd Generation 05/02/18 08:25 WBC RBC Hgb Hct MCV MCH MCHC RDW Plt Count MPV Neut % (Auto) Lymph % (Auto) [place] % (Auto) Eos % (Auto) Baso % (Auto) Lymph # (Auto) [place] # (Auto) Eos # (Auto) Baso # (Auto) Absolute Neuts (auto) Sodium Potassium Chloride Carbon Dioxide Anion Gap BUN Creatinine Est GFR ( Amer) Est GFR (Non-Af Amer) POC Glucose (mg/dL) Random Glucose Hemoglobin A1c Calcium Magnesium Total Bilirubin Direct Bilirubin AST ALT Alkaline Phosphatase Troponin I NT-Pro-B Natriuret Pep Total Protein Albumin Globulin Albumin/Globulin Ratio Triglycerides Cholesterol LDL Cholesterol Direct HDL Cholesterol Free T4 1.04 TSH 3rd Generation 2.20 EKG/Cardiology Studies: Cardiology / EKG Studies 05/01/18 11:28 ELECTROCARDIOGRAM Urgent Comment: 12 lead EKG upon arrival in unit Reason For Exam: post ptca 05/02/18 07:00 EKG [ELECTROCARDIOGRAM] DAILY Comment: Reason For Exam: NSTEMI 05/03/18 07:00 EKG [ELECTROCARDIOGRAM] DAILY Comment: Reason For Exam: NSTEMI 05/04/18 07:00 EKG [ELECTROCARDIOGRAM] DAILY Comment: Reason For Exam: NSTEMI Critical Care Progress Note - Nutrition Nutrition: Nutrition Category Date Time Status Consistent Carbohydrate [DIET] Diets 05/01/18 Breakfast Ordered Assessment/Plan - Assessment and Plan (Free Text) Plan: Patient seen and examined on rounds with resident, agree with note with following additions/exceptions: Patient is 57 yo M with PMH of CAD s/p stents, HTN, DM, and HLD admitted to ICU s/p cardiac catherization, with placement of BORA in LAD and Lcx. Currently afebrile, HD stable, comfortable in NAD, doing well. Denies CP, SOB. Finished Integrillin drip. Cont with ASA, plavix, BB Statin DC IVF ECHO DVT ppx GI ppx Stable, transfer to [facility]
[2018-05-02 10:20] VITALS: O2SAT 84
[2018-05-02] MEDS ORDERED: Levalbuterol 0.63 MG/3 ML Inhal Soln UD IH SCH (14:00)
--- NOTE | 2018-05-02 14:14 | PN ---
DATE: 05/02/2018 SUBJECTIVE: The patient is seen CCU, bed 7. The patient is post non-ST elevation myocardial infarction and emergent angioplasty and stent placement. The patient is lying in the bed comfortable. The patient's vital signs were reviewed. The patient denies chest pain, denies shortness of breath, denies nausea, vomiting, diarrhea and constipation. REVIEW OF SYSTEMS: A 14-system review of systems was done which was negative. PHYSICAL EXAMINATION VITAL SIGNS: Telemetry shows sinus rhythm, sinus bradycardia in 50s and 60s. Blood pressure is averaging around low 110s to 120 systolic and diastolic in 60s and 70s, respiratory rate averaging around low 20s and O2 oxygen saturation mid to high 90s. HEENT: Head examination normocephalic and atraumatic. HEENT examination shows pinkish pale conjunctivae. Anicteric sclerae. No oropharyngeal lesion. No neck rigidity. CHEST: Examination symmetrical. LUNGS: Examination shows no audible crackle, rales or wheezing. CARDIOVASCULAR: Examination is S1 and S2, regular rhythm. ABDOMEN: Soft. Positive bowel sounds. No palpable hepatosplenomegaly. GENITALIA: Male. RECTAL: Examination is deferred. Right groin examination is within normal limit. No hematomas or bleeding noted. EXTREMITIES: Pulses are palpable of the lower extremity. NEUROLOGY: Examination without any gross deficits. MUSCULOSKELETAL: Examination shows a body mass index of 28. PSYCHIATRIC: Examination not applicable. LABORATORY DATA: Lab data from May 02, 2018 is reviewed. CBC is within normal limits. Chemistry shows glucose of 170. Hemoglobin A1c 8.3. Troponin 0.44. Cholesterol 142, LDL 101 and HDL is 19 which is low. IMPRESSION: 1. Acute non-ST elevation myocardial infarction. 2. Noncompliant patient. 3. History of angioplasty and stent placement. 4. Status post cardiac catheterization and successful angioplasty and stent placement of the left circumflex artery and left anterior descending artery. 5. Left ventricle inferior wall hypokinesis with ejection fraction of 45% to 50%. 6. 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 7. 90% stenosis of the mid left circumflex artery. 8. Patent stent in the diagonal and left anterior descending artery. 9. 80% stenosis distal to the diagonal branch and distal to the previous stent. 10. Successful angioplasty and stent placement of the critically stenosed left circumflex artery and critically stenosed left anterior descending artery at the distal portion of the previously placed stent with drug-eluting stent placement. 11. Status post Integrilin drip treatment. 12. Non-insulin requiring diabetes mellitus with elevated hemoglobin A1c of 8.3. 13. Hyperlipidemia with elevated LDL and decreased HDL. 14. Obesity. 15. History of nicotine dependence. 16. History of hypertension and history of hyperlipidemia. PLAN: At this time, the patient's TSH level is pending. We are awaiting further cardiology evaluation. Current medications, aspirin 81 mg daily. The patient is presently on Integrilin drip which will be discontinued after Cardiology evaluation, sliding-scale low-dose Humulin insulin, Lipitor 40 daily, Lopressor 25 twice a day, Plavix 75 mg daily. At present, the patient is awaiting Cardiology evaluation for further recommendation from Cardiology perspective. The patient will be ordered incentive spirometry, oxygen of 2 liters. Head of the bed 30 to 45 degrees. Out of bed. Non-pharmacological DVT prophylaxis. We will await further recommendations by Cardiology for further decision about the patient's disposition. In addition, the patient will be started on the nicotine patch 21 mg daily. Dictated and electronically signed, not read. Signing off Tobias Jha MD. Tobias Jha MD
[2018-05-02 15:12] VITALS: RESP 34
[2018-05-02 17:07] VITALS: BP 126/79; PULSE 68
--- NOTE | 2018-05-02 22:50 | CARD ---
APPROVED REPORT Date of service: 05/02/2018 EKG Measurement Heart [id number] <Conclusion> Normal sinus rhythm Normal ECG
[2018-05-03] MEDS ORDERED: Pantoprazole 40 mg EC Tab PO SCH (06:00)
--- NOTE | 2018-05-03 07:27 | CP.PCM.DIS ---
Provider - Provider Attending physician: Gevoani Beach MD Consults: 05/01/18 14:01 Diabetic Education Referral Routine Comment: Physician Instructions: Reason For Exam: DM 05/01/18 14:24 Transition In Care/Readmission Reduction Routine Comment: Physician Instructions: Reason For Exam: cardiac Hx 05/01/18 20:03 Cardiology Consult Routine Comment: Consulting Provider: Geovani Beach Consulting Physician: Geovani Beach Reason for Consult: CAD/NSTEMI Time Spent in preparation of Discharge (in minutes): 30 Diagnosis - Discharge Diagnosis (1) Diabetes Status: Chronic (2) Chest pain Status: Acute (3) HTN (hypertension) Status: Chronic (4) NSTEMI (non-ST elevated myocardial infarction) Status: Acute Hospital Course - Lab Results Lab Results: Micro Results 05/01/18 11:50 Naris MRSA Culture (Admit) - Final MRSA NOT DETECTED Most Recent Lab Values WBC 8.6 10^3/uL (4.5-11.0) 05/02/18 06:50 RBC 5.45 10^6/uL (3.5-6.1) 05/02/18 06:50 Hgb 17.1 g/dL (14.0-18.0) 05/02/18 06:50 Hct 50.3 % (42.0-52.0) 05/02/18 06:50 MCV 92.3 fl (80.0-105.0) 05/02/18 06:50 MCH 31.4 pg (25.0-35.0) 05/02/18 06:50 MCHC 34.0 g/dl (31.0-37.0) 05/02/18 06:50 RDW 13.1 % (11.5-14.5) 05/02/18 06:50 Plt Count 157 10^3/uL (120.0-450.0) 05/02/18 06:50 MPV 10.3 fl (7.0-11.0) 05/02/18 06:50 Neut % (Auto) 63.7 % (50.0-68.0) 05/02/18 06:50 Lymph % (Auto) 24.6 % (22.0-35.0) 05/02/18 06:50 [place] % (Auto) 10.0 % (1.0-6.0) H 05/02/18 06:50 Eos % (Auto) 1.5 % (1.5-5.0) 05/02/18 06:50 Baso % (Auto) 0.2 % (0.0-3.0) 05/02/18 06:50 Lymph # (Auto) 2.1 (1.2-3.4) 05/02/18 06:50 [place] # (Auto) 0.9 (0.1-0.6) H 05/02/18 06:50 Eos # (Auto) 0.1 (0.0-0.7) 05/02/18 06:50 Baso # (Auto) 0.02 K/mm3 (0.0-2.0) 05/02/18 06:50 Absolute Neuts (auto) 5.47 (1.4-6.5) 05/02/18 06:50 Sodium 136 mmol/L (132-148) 05/02/18 06:50 Potassium 4.4 mmol/L (3.6-5.0) 05/02/18 06:50 Chloride 101 mmol/L (98-107) 05/02/18 06:50 Carbon Dioxide 25 mmol/L (21-33) 05/02/18 06:50 Anion Gap 13 (10-20) 05/02/18 06:50 BUN 15 mg/dL (7-21) 05/02/18 06:50 Creatinine 0.8 mg/dl (0.8-1.5) 05/02/18 06:50 Est GFR ( Amer) > 60 05/02/18 06:50 Est GFR (Non-Af Amer) > 60 05/02/18 06:50 POC Glucose (mg/dL) 131 mg/dL (65-110) H 05/02/18 17:04 Random Glucose 170 mg/dL (70-110) H 05/02/18 06:50 Hemoglobin A1c 8.3 % (4.2-6.5) H 05/01/18 16:00 Calcium 9.0 mg/dL (8.4-10.5) 05/02/18 06:50 Magnesium 1.7 mg/dL (1.7-2.2) 05/02/18 06:50 Total Bilirubin 0.6 mg/dL (0.2-1.3) 05/02/18 06:50 Direct Bilirubin 0.2 mg/dL (0.0-0.4) 05/02/18 06:50 AST 103 U/L (17-59) H D 05/02/18 06:50 ALT 142 U/L (7-56) H 05/02/18 06:50 Alkaline Phosphatase 74 U/L (38-126) 05/02/18 06:50 Troponin I 0.44 ng/mL H* 05/02/18 06:50 NT-Pro-B Natriuret Pep 50.7 pg/mL (0-450) 05/02/18 06:50 Total Protein 7.5 g/dL (5.8-8.3) 05/02/18 06:50 Albumin 3.9 g/dL (3.0-4.8) 05/02/18 06:50 Globulin 3.6 gm/dL 05/02/18 06:50 Albumin/Globulin Ratio 1.1 (1.1-1.8) 05/02/18 06:50 Triglycerides 153 mg/dL (35-160) 05/01/18 16:00 Cholesterol 142 mg/dL (130-200) 05/01/18 16:00 LDL Cholesterol Direct 101 mg/dL (0-129) 05/01/18 16:00 HDL Cholesterol 19 mg/dL (29-60) L 05/01/18 16:00 Free T4 1.04 ng/dL (0.78-2.19) 05/02/18 08:25 TSH 3rd Generation 2.20 mIU/mL (0.46-4.68) 05/02/18 08:25 - Hospital Course Hospital Course: PGY-[address] Jha Mr Marion, 57M, with PMH active smoker, CAD s/p stents x 3, HTN/HLD, DM admitted at [facility] for chest pain. 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 After unload and lift heavy packages, as he walked back to his seat, he felt the chest pain, which prompted him to the ED. He was found to have NSTEMI with mildly elevated troponins 0.16, 0.122. He was started on subcutaneous Lovenox therapy and symptoms resolved. He had a cardiac cath at [facility] [place] [place] were placed at LAD and L circ. He needed to be on integrillin gtt for 18 hours, so he was under ICU management post-cath. His A1C was found to be 8.3. Diabetic education was ordered. He received counseling on heart health diet/lifestyle with smoking cessation counseling. He should be continued on ASA/plavix, metoprol, enalapril, and statin. His home antiglycemic med is resumed. Pt was cleared by cardiology to go home. Discharge Exam - Head Exam Head Exam: ATRAUMATIC, NORMAL INSPECTION, NORMOCEPHALIC - Eye Exam Eye Exam: EOMI, Normal appearance, PERRL Pupil Exam: NORMAL ACCOMODATION - ENT Exam ENT Exam: Mucous Membranes Moist - Neck Exam Additional comments: supple - Respiratory Exam Respiratory Exam: Clear to PA & Lateral, NORMAL BREATHING PATTERN, UNREMARKABLE. absent: Rales, Rhonchi, Wheezes - Cardiovascular Exam Cardiovascular Exam: REGULAR RHYTHM, +S1, +S2 - GI/Abdominal Exam GI & Abdominal Exam: Normal Bowel Sounds, Soft, Unremarkable. absent: Distended, Firm, Guarding, Rigid - Extremities Exam Extremities exam: normal capillary refill, pedal pulses present Additional comments: cath entry side no hematoma/ecchymosis. dressing d/c/i - Neurological Exam Neurological exam: Alert, CN II-XII Intact, Normal Gait, Oriented x3 - Psychiatric Exam Psychiatric exam: Normal Affect, Normal Mood - Skin Skin Exam: Dry, Warm Discharge Plan - Discharge Medications Prescriptions: Levalbuterol [Xopenex] 0.63 mg IH [id number] 30 Days neb Aspirin [Ecotrin] 81 mg PO DAILY #30 tabec Atorvastatin [Lipitor] 40 mg PO DIN #30 tab Clopidogrel [Plavix] 75 mg PO DAILY #30 tab Enalapril Maleate 5 mg PO DAILY #30 Glipizide 5 mg PO DAILY #30 Metoprolol Tartrate [Lopressor] 25 mg PO BID #60 tab Nicotine 21 mg/24 hr [Nicoderm Cq] 1 patch TD DAILY 10 Days patch Pantoprazole [Protonix EC Tab] 40 mg PO 0600 #30 ect - Follow Up Plan Condition: GOOD Disposition: HOME/ ROUTINE Instructions: Chest Pain (DC), Chest Pain (GEN), Syncope (DC), Syncope (GEN)
--- NOTE | 2018-05-03 08:14 | PN ---
DATE: 05/02/2018 CARDIOLOGY FOLLOWUP SUBJECTIVE: The patient is chest pain free and is walking in the unit without issues. PHYSICAL EXAMINATION: KATH SIGNS: Blood pressure is 150/57 and heart rate is in the 60s. NECK: Negative JVD. LUNGS: Without rales. HEART: S1 and S2. EXTREMITIES: Without edema. The right groin site is stable. LABORATORY DATA: EKG is unchanged. Hemoglobin is 17.1. Chemistries, glucose is 241. IMPRESSION: 1. Status post non-ST elevation myocardial infarction. 2. Status post percutaneous transluminal coronary angioplasty and stent of the right coronary artery as well as the left anterior descending. 3. Nicotine addiction. 4. Chronic obstructive pulmonary disease. 5. Diabetes mellitus. 6. Hypercholesterolemia. PLAN: Given these findings, the patient is stable post PTCA and stent of multiple vessels. The patient is clinically stable and can be discharged. 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 He can be discharged. I discussed with the patient about the need to stop smoking. He understands and is agreeable for a nicotine patch. Discharge today. Geovani Beach MD
== END 2018-05-02 18:28 | disposition home or self-care (01) ==
LOC: CATH 09:02 → CCU 11:30 → CATH 05-02 18:28
PROVIDERS: ATTEND Internal Medicine Cardiovascular Disease
DX: I21.4 Non-ST elevation (NSTEMI) myocardial infarction (principal); I25.110 Atherosclerotic heart disease of native coronary artery with unstable angina pectoris; I10 Essential (primary) hypertension; E78.5 Hyperlipidemia, unspecified; E78.00 Pure hypercholesterolemia, unspecified; E11.9 Type 2 diabetes mellitus without complications; E66.9 Obesity, unspecified; F17.210 Nicotine dependence, cigarettes, uncomplicated; Z79.82 Long term (current) use of aspirin; Z79.899 Other long term (current) drug therapy; Z91.14 Patient's other noncompliance with medication regimen; Z91.19 Patient's noncompliance with other medical treatment and regimen; Z82.49 Family history of ischemic heart disease and other diseases of the circulatory system; Z83.3 Family history of diabetes mellitus; Z84.1 Family history of disorders of kidney and ureter; Z95.5 Presence of coronary angioplasty implant and graft; Z68.27 Body mass index [BMI] 27.0-27.9, adult
CPT/HCPCS: 80048; 80061; 80076; 82948 ×2; 83036; 83735; 83880; 84439 ×2; 84443; 84484; 85025; 85576; 87081; 93005 ×2; 93458; 94640; 97116; 97161; 99152; 99153; C1725 ×2; C1760; C1769 ×2; C1874 ×2; C1887; C2629; C9600; C9601; G8978; G8979; G8980; J0583; J1327 ×3; J1644; J2250; J3010; J7030; Q9966; Q9967 ×2